=== PATIENT | female | born 1980 | race Caucasian/White ===

== ENCOUNTER 2022-09-07 17:24 | Inpatient (IN) | payer BC ==
[2022-09-07 17:58] VITALS: BMI 20.3
[2022-09-07] MEDS ORDERED: LORazepam 2 MG/ML SDV VIAL IM ONE (17:58)
[2022-09-07] MEDS ORDERED: P-EPHED 60MG/TRIPROLIDI 2.5MG TABLET PO PRN (18:00)
[2022-09-07] MEDS ORDERED: MAG HYDROX/AL HYDROX/SIMETH 30 ML UNIT-DOSE CUP PO PRN (18:00)
[2022-09-07] MEDS ORDERED: BISMUTH SUBSALICYLATE 524 MG/30 ML PO PRN (18:00)
[2022-09-07] MEDS ORDERED: POLYETHYLENE GLYCOL (HEALTHYLAX) 3350 17 GM PACKET PO PRN (18:00)
[2022-09-07] MEDS ORDERED: guaiFENesin 200 MG/10 ML 10 ML UNIT-DOSE CUPS PO PRN (18:00)
[2022-09-07] MEDS ORDERED: LOPERAMIDE HCL 2 MG CAPSULE PO PRN (18:00)
[2022-09-07] MEDS ORDERED: MAGNESIUM HYDROX 2400MG/30ML ORAL SUSPENSION 30 ML CUP PO PRN (18:00)
[2022-09-07] MEDS ORDERED: ACETAMINOPHEN 325 MG TABLET (FP) PO PRN ×2 (18:00)
[2022-09-07] MEDS ORDERED: BENZOCAINE/MENTHOL (CHLORASEPTIC ) LOZENGE MM PRN (18:00)
[2022-09-07] MEDS ORDERED: chlordiazePOXIDE HCL 25 MG CAPSULE PO PRN (18:03)
[2022-09-07] MEDS: chlordiazePOXIDE HCL 25 MG CAPSULE PO SCH ×2 (19:10→22:04)
[2022-09-07] MEDS: THIAMINE HCL 100 MG TABLET (FP) PO SCH (22:03)
[2022-09-07] MEDS: MELATONIN 5 MG TABLETS PO PRN (22:03)
[2022-09-08] MEDS: chlordiazePOXIDE HCL 25 MG CAPSULE PO SCH ×4 (05:42→22:30)
[2022-09-08] MEDS: ONDANSETRON *ODT* 4 MG TABLET SL PRN (05:44)
[2022-09-08] MEDS: PRENATAL VITAMINS W/ FOLIC ACID TABLET (FP) PO SCH (10:24)
[2022-09-08] MEDS: DICYCLOMINE HCL 10 MG CAPSULE PO PRN (10:24)
[2022-09-08 12:05] LABS: HEMATOCRIT 30.1 % (32.4-45.2); HEMOGLOBIN 10.3 GM/dL (10.7-15.3); MCH 35.7 pg (25.7-33.7); MCHC 34.3 g/dl (32.0-36.0); MEAN CELL VOLUME 104.1 fl (80-96); MEAN PLT VOLUME 8.5 fl (7.5-11.1); PLATELET COUNT 44 10^3/uL (134-434); RDW 16.2 % (11.6-15.6); WHITE BLOOD COUNT 2.9 K/mm3 (4.0-10.0)
[2022-09-08 13:54] LABS: ALBUMIN 3.4 g/dl (3.4-5.0); CALCIUM 8.6 mg/dL (8.5-10.1)
[2022-09-08 13:55] LABS: BLOOD UREA NITROGEN 6.6 mg/dL (7-18)
[2022-09-08 13:57] LABS: CREATININE 0.3 mg/dL (0.55-1.3)
[2022-09-08 13:59] LABS: BILIRUBIN,TOTAL 1.2 mg/dL (0.2-1); TOT PROT 6.4 g/dl (6.4-8.2)
[2022-09-08] MEDS: METHOCARBAMOL 500 MG TABLET PO PRN (17:44)
[2022-09-08] MEDS: MELATONIN 5 MG TABLETS PO PRN (22:28)
[2022-09-08] MEDS: THIAMINE HCL 100 MG TABLET (FP) PO SCH (22:28)
[2022-09-09] MEDS: chlordiazePOXIDE HCL 25 MG CAPSULE PO SCH ×4 (05:17→22:31)
[2022-09-09] MEDS: METHOCARBAMOL 500 MG TABLET PO PRN ×2 (10:50→18:01)
[2022-09-09] MEDS: DICYCLOMINE HCL 10 MG CAPSULE PO PRN (10:50)
[2022-09-09] MEDS: PRENATAL VITAMINS W/ FOLIC ACID TABLET (FP) PO SCH (10:52)
[2022-09-09] MEDS: MELATONIN 5 MG TABLETS PO PRN (22:30)
[2022-09-09] MEDS: THIAMINE HCL 100 MG TABLET (FP) PO SCH (22:30)
[2022-09-10] MEDS ORDERED: chlordiazePOXIDE HCL 10 MG CAPSULE PO PRN
[2022-09-10] MEDS: chlordiazePOXIDE HCL 10 MG CAPSULE PO SCH ×4 (05:42→22:36)
[2022-09-10] MEDS: hydrOXYzine PAMOATE 25 MG CAPSULE (FP) PO PRN ×2 (05:42→17:05)
[2022-09-10] MEDS: PRENATAL VITAMINS W/ FOLIC ACID TABLET (FP) PO SCH (10:27)
[2022-09-10] MEDS: METHOCARBAMOL 500 MG TABLET PO PRN ×2 (10:30→22:38)
[2022-09-10] MEDS: ONDANSETRON *ODT* 4 MG TABLET SL PRN ×2 (10:30→17:09)
[2022-09-10] MEDS: FERROUS SO4 325 MG TABLET (FP) PO SCH (12:05)
[2022-09-10] MEDS: THIAMINE HCL 100 MG TABLET (FP) PO SCH (22:36)
[2022-09-11] MEDS: chlordiazePOXIDE HCL 10 MG CAPSULE PO SCH ×2 (05:12→17:24)
[2022-09-11] MEDS: DICYCLOMINE HCL 10 MG CAPSULE PO PRN (05:14)
[2022-09-11] MEDS: ONDANSETRON *ODT* 4 MG TABLET SL PRN (05:15)
[2022-09-11] MEDS: hydrOXYzine PAMOATE 25 MG CAPSULE (FP) PO PRN ×3 (05:17→22:21)
[2022-09-11] MEDS: PRENATAL VITAMINS W/ FOLIC ACID TABLET (FP) PO SCH (10:16)
[2022-09-11] MEDS: FERROUS SO4 325 MG TABLET (FP) PO SCH (10:16)
[2022-09-11] MEDS: METHOCARBAMOL 500 MG TABLET PO PRN ×2 (10:21→22:20)
[2022-09-11] MEDS: THIAMINE HCL 100 MG TABLET (FP) PO SCH (22:20)
[2022-09-11] MEDS: MELATONIN 5 MG TABLETS PO PRN (22:20)
[2022-09-12] MEDS ORDERED: chlordiazePOXIDE HCL 10 MG CAPSULE PO ONE (05:00)
[2022-09-12] MEDS: hydrOXYzine PAMOATE 25 MG CAPSULE (FP) PO PRN ×3 (05:38→18:20)
[2022-09-12] MEDS: PRENATAL VITAMINS W/ FOLIC ACID TABLET (FP) PO SCH (10:21)
[2022-09-12] MEDS: FERROUS SO4 325 MG TABLET (FP) PO SCH (10:21)
[2022-09-12] MEDS: METHOCARBAMOL 500 MG TABLET PO PRN ×2 (10:23→18:18)
[2022-09-12] MEDS: DULoxetine HCL 20 MG CAPSULE.DR PO SCH (12:22)
[2022-09-12] MEDS: MELATONIN 5 MG TABLETS PO PRN (22:40)
[2022-09-12] MEDS: THIAMINE HCL 100 MG TABLET (FP) PO SCH (22:40)
[2022-09-13] MEDS: FERROUS SO4 325 MG TABLET (FP) PO SCH (10:06)
[2022-09-13] MEDS: DULoxetine HCL 20 MG CAPSULE.DR PO SCH (10:06)
[2022-09-13] MEDS: METHOCARBAMOL 500 MG TABLET PO PRN (10:06)
[2022-09-13] MEDS: hydrOXYzine PAMOATE 25 MG CAPSULE (FP) PO PRN (10:06)
[2022-09-13] MEDS: PRENATAL VITAMINS W/ FOLIC ACID TABLET (FP) PO SCH (10:06)
[2022-09-13 13:17] VITALS: BP 102/73; PULSE 103; RESP 20; TEMP 97.6
== END 2022-09-13 13:57 | disposition home or self-care (01) | DRG 775 ==
LOC: YASAS 17:24 → Y6N 19:02
PROVIDERS: ADMIT Allergy & Immunology; ATTEND Family Medicine
PROC: HZ2ZZZZ Detoxification Services for Substance Abuse Treatment (ICD-10-PCS; principal; 2022-09-07)
DX: F10.230 Alcohol dependence with withdrawal, uncomplicated (principal); F10.24 Alcohol dependence with alcohol-induced mood disorder; F32.A Depression, unspecified; Z87.19 Personal history of other diseases of the digestive system; Z28.310 Unvaccinated for COVID-19; Z28.9 Immunization not carried out for unspecified reason; Z56.0 Unemployment, unspecified; Z59.00 Homelessness unspecified
CPT/HCPCS: 36415; 80053; 84132; 85027; 86780; 87811; C9803-CS; Q0162; U0003; U0005

== ENCOUNTER 2022-10-09 16:04 | Inpatient (IN) | payer BC ==
[2022-10-09] MEDS ORDERED: TRIMETHOBENZAMIDE HCL 200MG/2ML INJ IM ONE ×2 (18:26→18:53)
[2022-10-09] MEDS ORDERED: LORazepam 2 MG/ML SDV VIAL IM ONE (18:30)
[2022-10-09 18:57] VITALS: BMI 20.3
[2022-10-09] MEDS ORDERED: DICYCLOMINE HCL 10 MG CAPSULE PO PRN (18:58)
[2022-10-09] MEDS ORDERED: ACETAMINOPHEN 325 MG TABLET (FP) PO PRN (18:58)
[2022-10-09] MEDS ORDERED: POLYETHYLENE GLYCOL (HEALTHYLAX) 3350 17 GM PACKET PO PRN (18:58)
[2022-10-09] MEDS ORDERED: BISMUTH SUBSALICYLATE 524 MG/30 ML PO PRN (18:58)
[2022-10-09] MEDS ORDERED: MAG HYDROX/AL HYDROX/SIMETH 30 ML UNIT-DOSE CUP PO PRN (18:58)
[2022-10-09] MEDS ORDERED: MAGNESIUM HYDROX 2400MG/30ML ORAL SUSPENSION 30 ML CUP PO PRN (18:58)
[2022-10-09] MEDS ORDERED: LOPERAMIDE HCL 2 MG CAPSULE PO PRN (18:58)
[2022-10-09] MEDS ORDERED: BENZOCAINE/MENTHOL (CHLORASEPTIC ) LOZENGE MM PRN (18:58)
[2022-10-09] MEDS ORDERED: guaiFENesin 200 MG/10 ML 10 ML UNIT-DOSE CUPS PO PRN (18:58)
[2022-10-09] MEDS ORDERED: IBUPROFEN 400 MG TABLET (FP) PO PRN (18:58)
[2022-10-09] MEDS ORDERED: P-EPHED 60MG/TRIPROLIDI 2.5MG TABLET PO PRN (18:58)
[2022-10-09] MEDS ORDERED: chlordiazePOXIDE HCL 25 MG CAPSULE PO ONE (19:04)
[2022-10-09] MEDS ORDERED: chlordiazePOXIDE HCL 25 MG CAPSULE PO PRN (19:04)
[2022-10-09] MEDS ORDERED: chlordiazePOXIDE HCL 25 MG CAPSULE ONE (19:20)
[2022-10-09] MEDS ORDERED: hydrOXYzine PAMOATE 25 MG CAPSULE (FP) PO ONE (19:20)
[2022-10-09] MEDS: hydrOXYzine PAMOATE 25 MG CAPSULE (FP) PO PRN (19:24)
[2022-10-09] MEDS: MELATONIN 5 MG TABLETS PO SCH ×2 (22:15→22:22)
[2022-10-09] MEDS: METHOCARBAMOL 500 MG TABLET PO PRN (22:21)
[2022-10-09] MEDS: chlordiazePOXIDE HCL 25 MG CAPSULE PO SCH (22:21)
[2022-10-09] MEDS: THIAMINE HCL 100 MG TABLET (FP) PO SCH (22:22)
[2022-10-10] MEDS: ONDANSETRON *ODT* 4 MG TABLET SL PRN ×2 (05:38→22:20)
[2022-10-10] MEDS: chlordiazePOXIDE HCL 25 MG CAPSULE PO SCH ×4 (05:52→22:11)
[2022-10-10] MEDS: PRENATAL VITAMINS W/ FOLIC ACID TABLET (FP) PO SCH (10:07)
[2022-10-10] MEDS: IBUPROFEN 600 MG TABLET (FP) PO PRN (10:39)
[2022-10-10] MEDS: MELATONIN 5 MG TABLETS PO SCH (22:10)
[2022-10-10] MEDS: THIAMINE HCL 100 MG TABLET (FP) PO SCH (22:10)
[2022-10-11] MEDS: chlordiazePOXIDE HCL 25 MG CAPSULE PO SCH ×4 (05:51→22:14)
[2022-10-11] MEDS: hydrOXYzine PAMOATE 25 MG CAPSULE (FP) PO PRN ×2 (09:10→17:08)
[2022-10-11] MEDS: PRENATAL VITAMINS W/ FOLIC ACID TABLET (FP) PO SCH (10:32)
[2022-10-11] MEDS: IBUPROFEN 600 MG TABLET (FP) PO PRN ×2 (10:33→21:39)
[2022-10-11 12:25] LABS: HEMATOCRIT 31.8 % (32.4-45.2); HEMOGLOBIN 10.4 GM/dL (10.7-15.3); MCH 33.3 pg (25.7-33.7); MCHC 32.6 g/dl (32.0-36.0); MEAN CELL VOLUME 102.2 fl (80-96); MEAN PLT VOLUME 7.8 fl (7.5-11.1); PLATELET COUNT 50 10^3/uL (134-434); RBC 3.11 M/mm3 (3.60-5.2); RDW 15.4 % (11.6-15.6); WHITE BLOOD COUNT 2.7 K/mm3 (4.0-10.0)
[2022-10-11 13:16] LABS: BLOOD UREA NITROGEN 8.4 mg/dL (7-18)
[2022-10-11 13:18] LABS: CREATININE 0.3 mg/dL (0.55-1.3)
[2022-10-11 13:32] LABS: CALCIUM 8.5 mg/dL (8.5-10.1)
[2022-10-11 13:39] LABS: BILIRUBIN,TOTAL 0.9 mg/dL (0.2-1)
[2022-10-11] MEDS: METHOCARBAMOL 500 MG TABLET PO PRN (17:09)
[2022-10-11] MEDS: ONDANSETRON *ODT* 4 MG TABLET SL PRN (17:10)
[2022-10-11] MEDS: ACETAMINOPHEN 325 MG TABLET (FP) PO PRN (21:40)
[2022-10-11] MEDS: MELATONIN 5 MG TABLETS PO SCH (22:14)
[2022-10-11] MEDS: THIAMINE HCL 100 MG TABLET (FP) PO SCH (22:14)
[2022-10-12] MEDS ORDERED: chlordiazePOXIDE HCL 10 MG CAPSULE PO PRN
[2022-10-12] MEDS: hydrOXYzine PAMOATE 25 MG CAPSULE (FP) PO PRN ×3 (01:29→22:20)
[2022-10-12] MEDS: chlordiazePOXIDE HCL 10 MG CAPSULE PO SCH ×4 (05:56→22:20)
[2022-10-12] MEDS: PRENATAL VITAMINS W/ FOLIC ACID TABLET (FP) PO SCH (10:06)
[2022-10-12] MEDS: ONDANSETRON *ODT* 4 MG TABLET SL PRN (10:08)
[2022-10-12] MEDS: ACETAMINOPHEN 325 MG TABLET (FP) PO PRN (10:09)
[2022-10-12] MEDS ORDERED: NICOTINE 10 MG CARTRIDGE (INHALER) IH PRN (10:55)
[2022-10-12] MEDS: IBUPROFEN 600 MG TABLET (FP) PO PRN (15:46)
[2022-10-12] MEDS: METHOCARBAMOL 500 MG TABLET PO PRN (15:46)
[2022-10-12] MEDS: MELATONIN 5 MG TABLETS PO SCH (22:19)
[2022-10-12] MEDS: GABAPENTIN 100 MG CAPSULE PO SCH (22:20)
[2022-10-12] MEDS: THIAMINE HCL 100 MG TABLET (FP) PO SCH (22:20)
[2022-10-13] MEDS: chlordiazePOXIDE HCL 10 MG CAPSULE PO SCH ×2 (05:57→17:10)
[2022-10-13] MEDS: GABAPENTIN 100 MG CAPSULE PO SCH ×3 (05:58→22:21)
[2022-10-13] MEDS: METHOCARBAMOL 500 MG TABLET PO PRN ×2 (10:16→17:11)
[2022-10-13] MEDS: PRENATAL VITAMINS W/ FOLIC ACID TABLET (FP) PO SCH (10:16)
[2022-10-13] MEDS: hydrOXYzine PAMOATE 25 MG CAPSULE (FP) PO PRN ×2 (10:16→17:11)
[2022-10-13] MEDS: MELATONIN 5 MG TABLETS PO SCH (22:21)
[2022-10-13] MEDS: THIAMINE HCL 100 MG TABLET (FP) PO SCH (22:21)
[2022-10-14] MEDS ORDERED: chlordiazePOXIDE HCL 10 MG CAPSULE PO ONE (05:00)
[2022-10-14] MEDS: GABAPENTIN 100 MG CAPSULE PO SCH (06:09)
[2022-10-14 09:13] VITALS: BP 105/75; PULSE 99; RESP 16; TEMP 97.3
[2022-10-14] MEDS: PRENATAL VITAMINS W/ FOLIC ACID TABLET (FP) PO SCH (10:08)
[2022-10-14] MEDS: METHOCARBAMOL 500 MG TABLET PO PRN (10:08)
[2022-10-14] MEDS: ONDANSETRON *ODT* 4 MG TABLET SL PRN (10:31)
== END 2022-10-14 10:38 | disposition home or self-care (01) | DRG 775 ==
LOC: YASAS 16:04 → Y6N 19:33
PROVIDERS: ADMIT Allergy & Immunology; ATTEND Surgery
PROC: HZ2ZZZZ Detoxification Services for Substance Abuse Treatment (ICD-10-PCS; principal; 2022-10-09)
DX: F10.230 Alcohol dependence with withdrawal, uncomplicated (principal); F10.280 Alcohol dependence with alcohol-induced anxiety disorder; F31.9 Bipolar disorder, unspecified; D64.9 Anemia, unspecified; M54.50 Low back pain, unspecified; G89.29 Other chronic pain; Z62.810 Personal history of physical and sexual abuse in childhood; Z91.410 Personal history of adult physical and sexual abuse; Z87.19 Personal history of other diseases of the digestive system; Z99.89 Dependence on other enabling machines and devices; Z28.310 Unvaccinated for COVID-19; Z28.9 Immunization not carried out for unspecified reason
CPT/HCPCS: 36415; 80053; 81025; 85027; 86780; C9803-CS; Q0162; U0003; U0005